=== PATIENT | male | born 1930 | race Caucasian/White ===

== ENCOUNTER 2018-01-26 16:51 | Inpatient (IN) | payer OTHER ==
[~2018-01-26] VITALS: Ht 175.3 cm; Wt 95.4 kg
[~2018-01-26 16:51] MED LIST: AMLODIPINE BESY10 MG PO; AMOX TR-K CLV1 EAC4; DOXAZOSIN MESYLA8 MG PO; GLIPIZIDE XL10 MG PO; HYDROCHLOROTHIA25 MG PO; LOVASTATIN40 MG PO; PIOGLITAZONE-M1 EAC1 PO; PROMETH; VICTOZA0.6 MG/0.1 SC; [UNRECOGNIZED DRUG - OTHER]; [UNRECOGNIZED DRUG - SUPPLY]
[2018-01-26 18:49] LABS: APPEARANCE CLEAR ((CLEAR)); BILIRUBIN NEGATIVE; BLOOD SMALL; COLOR YELLOW ((YELLOW)); GLUCOSE (STRIP) NEGATIVE; KETONES NEGATIVE; LEUKOCYTES NEGATIVE; NITRITE NEGATIVE; PROTEIN (STRIP) 100; SPECIFIC GRAVITY 1.015 (1.000-1.030)
[2018-01-26 18:51] LABS: BACTERIA NONE SEEN /HPF; EPITHELIAL CELLS NONE SEEN /HPF; MUCUS TRACE /LPF; UCUL ADDED? NO; WHITE BLOOD CELLS 0-5 /HPF (0-5)
[2018-01-26 19:21] LABS: HEMATOCRIT 28.8 % (38.0-50.0); HEMOGLOBIN 9.7 G/DL (12.5-16.6); MCH 27.7 PG (29.0-34.0); MCHC 33.7 G/DL (30.0-36.0); MCV 82.3 FL (86-99); PLATELET COUNT 228 K/uL (156-360); RBC DIS.WIDTH-CV 18.6 % (11.8-14.6); RBC DIS.WIDTH-SD 55.6 % (39-53); WHITE BLOOD COUNT 7.2 K/uL (4.1-10.2)
[2018-01-26 19:32] LABS: ALBUMIN 3.7 g/dL (3.2-4.8); CHLORIDE 101 mEq/L (99-109); POTASSIUM 4.1 mEq/L (3.7-5.4); SODIUM 133 mEq/L (136-147)
[2018-01-26 19:34] LABS: GLUCOSE 155 mg/dL (70-99); TOTAL PROTEIN 6.9 g/dL (6.4-8.3)
[2018-01-26 19:36] LABS: TOTAL BILIRUBIN 0.5 mg/dL (0.0-1.0)
[2018-01-26 19:38] LABS: ALKALINE PHOSPHATASE 129 IU/L (3-129); CREATININE 1.5 mg/dL (0.6-1.3); GFR ESTIMATE (CALCULATED) 47 mL/min/ (58.99-99999)
[2018-01-26 19:39] LABS: UREA NITROGEN (BUN) 21 mg/dL (9-23)
[2018-01-26 19:40] LABS: AST (GOT) 42 IU/L (2-34)
[2018-01-26 19:41] LABS: ALT (GPT) 38 IU/L (3-49); CREATINE KINASE 51 IU/L (1-294); TOTAL CK 51 IU/L (1-294)
[2018-01-26 19:47] LABS: CK-MB 0.6 ng/mL (0.0-4.9); CKMB RELATIVE INDEX 1.2 (0.0-3.9)
[2018-01-26 19:50] LABS: ERTH.SED.RATE 94 MM/HR (0-20)
[2018-01-27] VITALS (7 sets, daily range): BP systolic 125–158; BP diastolic 61–83
[2018-01-27 04:19] LABS: APPEARANCE CLEAR ((CLEAR)); BILIRUBIN NEGATIVE; BLOOD SMALL; COLOR YELLOW ((YELLOW)); GLUCOSE (STRIP) NEGATIVE; KETONES 20; LEUKOCYTES NEGATIVE; NITRITE NEGATIVE; PROTEIN (STRIP) 100; SPECIFIC GRAVITY 1.015 (1.000-1.030)
[2018-01-27 04:22] LABS: BACTERIA RARE /HPF; EPITHELIAL CELLS NONE SEEN /HPF; MUCUS TRACE /LPF; UCUL ADDED? NO; WHITE BLOOD CELLS 0-5 /HPF (0-5)
[2018-01-27 07:47] LABS: HEMATOCRIT 29.1 % (38.0-50.0); HEMOGLOBIN 9.5 G/DL (12.5-16.6); MCH 26.8 PG (29.0-34.0); MCHC 32.6 G/DL (30.0-36.0); PLATELET COUNT 197 K/uL (156-360); RBC DIS.WIDTH-CV 18.3 % (11.8-14.6); RBC DIS.WIDTH-SD 54.1 % (39-53); RED BLOOD COUNT 3.55 M/uL (4.00-5.50); WHITE BLOOD COUNT 7.2 K/uL (4.1-10.2)
[2018-01-27 07:56] LABS: ALBUMIN 3.5 G/DL (3.2-4.8); ALKALINE PHOSPHATASE 106 IU/L (3-129); ALT (GPT) 26 IU/L (3-49); AST (GOT) 24 IU/L (2-34); CHLORIDE 98 MEQ/L (99-109); CREATININE 1.4 MG/DL (0.6-1.3); GFR ESTIMATE (CALCULATED) 51 mL/min/ (58.99-99999); GLUCOSE 151 mg/dL (70-99); POTASSIUM 3.8 MEQ/L (3.7-5.4); SODIUM 133 MEQ/L (136-147); TOTAL BILIRUBIN 0.6 MG/DL (0.0-1.0); TOTAL PROTEIN 6.3 G/DL (6.4-8.3); UREA NITROGEN (BUN) 23 mg/dL (9-23)
[2018-01-28 04:08] VITALS: BP 129/71
[2018-01-28 07:50] VITALS: BP 128/60
[2018-01-28 09:28] LABS: HEMOGLOBIN A1c (GLYCOHEMOGLOB) 8.8 % (Below 5.7)
[2018-01-28 12:35] VITALS: BP 132/63
[2018-01-28 15:10] VITALS: BP 140/79
[2018-01-28 20:08] VITALS: BP 138/63
[2018-01-29 00:13] VITALS: BP 132/60
[2018-01-29 03:41] VITALS: BP 128/62
[2018-01-29 05:37] LABS: HEMATOCRIT 29.8 % (38.0-50.0); HEMOGLOBIN 9.6 G/DL (12.5-16.6); MCH 26.4 PG (29.0-34.0); MCHC 32.2 G/DL (30.0-36.0); MCV 81.9 FL (86-99); PLATELET COUNT 218 K/uL (156-360); RBC DIS.WIDTH-CV 18.1 % (11.8-14.6); RBC DIS.WIDTH-SD 54.1 % (39-53); RED BLOOD COUNT 3.64 M/uL (4.00-5.50); WHITE BLOOD COUNT 6.9 K/uL (4.1-10.2)
[2018-01-29 06:14] LABS: CHLORIDE 99 MEQ/L (99-109); CREATININE 1.4 MG/DL (0.6-1.3); GFR ESTIMATE (CALCULATED) 51 mL/min/ (58.99-99999); GLUCOSE 151 mg/dL (70-99); POTASSIUM 4.1 MEQ/L (3.7-5.4); SODIUM 135 MEQ/L (136-147); UREA NITROGEN (BUN) 26 mg/dL (9-23)
[2018-01-29 08:17] VITALS: BP 118/56
[2018-01-29 10:20] VITALS: BP 147/69
[2018-01-29 16:02] VITALS: BP 138/64
[2018-01-29 20:04] VITALS: BP 123/58
[2018-01-30] VITALS (7 sets, daily range): BP systolic 125–164; BP diastolic 57–68
[2018-01-31 04:05] VITALS: BP 140/64
[2018-01-31 07:25] VITALS: BP 125/60
[2018-01-31 11:25] VITALS: BP 127/65
[2018-01-31 15:56] VITALS: BP 144/65
[2018-01-31 19:53] VITALS: BP 158/69
[2018-01-31 23:16] VITALS: BP 121/59
[2018-02-01 04:11] VITALS: BP 110/69
[2018-02-01 07:44] VITALS: BP 144/65
[2018-02-01 11:13] VITALS: BP 117/58
[2018-02-01 15:41] VITALS: BP 113/53
== END 2018-02-01 18:57 | DRG 695 ==
LOC: EME 16:51 → EDOF 22:07 → ENRESERV 22:13 → EDOF 01-27 00:52 → 3EAST 01-27 00:52 → EDOF 01-27 00:52 → 3EAST 01-27 01:59
PROVIDERS: Emergency Medicine; Internal Medicine
DX: R32 Unspecified urinary incontinence (principal); R65.10 Systemic inflammatory response syndrome (SIRS) of non-infectious origin without acute organ dysfunction; T44.6X5A Adverse effect of alpha-adrenoreceptor antagonists, initial encounter; R31.29 Other microscopic hematuria; I62.03 Nontraumatic chronic subdural hemorrhage; G91.2 (Idiopathic) normal pressure hydrocephalus; E11.22 Type 2 diabetes mellitus with diabetic chronic kidney disease; I12.9 Hypertensive chronic kidney disease with stage 1 through stage 4 chronic kidney disease, or unspecified chronic kidney disease; N18.3 Chronic kidney disease, stage 3 (moderate); G89.29 Other chronic pain; M54.5 Low back pain; R33.9 Retention of urine, unspecified; E66.9 Obesity, unspecified; Z68.31 Body mass index [BMI] 31.0-31.9, adult; Z98.2 Presence of cerebrospinal fluid drainage device; Z87.891 Personal history of nicotine dependence; Z79.84 Long term (current) use of oral hypoglycemic drugs
CPT/HCPCS: 70450; 71045; 72131; 72149; 80048; 80053; 81003; 82550; 82553; 82948; 83036; 83605; 85027; 85651; 87040; 87086; 99281; 99285; G0378; J1815; J2405